=== PATIENT | female | born 1960 | race Caucasian/White ===

== ENCOUNTER → 2016-06-20 16:22 | Outpatient (CLI) | payer BC | END | disposition home or self-care (01) | LOC: D.MAMMO 10:00 | DX: Z12.31 Encounter for screening mammogram for malignant neoplasm of breast (principal) ==

== ENCOUNTER → 2017-06-22 13:05 | Outpatient (CLI) | payer BC | END | disposition home or self-care (01) | LOC: D.CT 13:05 | DX: K43.2 Incisional hernia without obstruction or gangrene (principal); R10.11 Right upper quadrant pain ==

== ENCOUNTER 2017-08-31 07:00 | Day surgery (SDC) | payer BC ==
[2017-08-30 08:26] LABS: HEMATOCRIT 34.8 % (36.0-48.0); HEMOGLOBIN 10.8 g/dL (12-16); MCH 25.2 pg (26.0-34.0); MCV 81.3 fL (80.0-100.0); MEAN PLATELET VOLUME 9.3 fL (7.4-10.4); RBC 4.28 10x6/uL (4.00-5.40); RDW 15.1 % (11.5-14.5)
[2017-08-30 08:39] LABS: ANION GAP 14.4 mmol/L (8-16); CALCIUM 8.4 mg/dL (8.5-10.1); CARBON DIOXIDE 26.2 mmol/L (21.0-32.0); CREATININE - SERUM 0.9 mg/dL (0.6-1.3); POTASSIUM - SERUM 3.6 mmol/L (3.5-5.1)
[~2017-08-31] VITALS: Ht 154.9 cm; Wt 91.2 kg
--- NOTE | ~2017-08-31 | OP ---
PATIENT NAME: STEPHANIE BENNETT MEDICAL RECORD: [id number] LOCATION:D[facility] ADMISSION DATE: SURGEON: RAJ BECKWITH MD DATE OF OPERATION: 08/31/2017 PREOPERATIVE DIAGNOSES: Right upper quadrant incisional hernia. POSTOPERATIVE DIAGNOSES: Right upper quadrant incarcerated incisional hernia. PROCEDURE: Open right upper quadrant incarcerated incisional hernia repair with 20.3 cm x 15.[address] mesh in the subfascial location. SURGEON: Raj Beckwith MD CLOTH FOLDER HAND: None. BLOOD LOSS: 50 cc. ANESTHESIA: General. COMPLICATIONS: None. The risks, possible complications and alternatives to the procedure were explained to the patient. She elects to proceed. Discussion specifically included, but was not limited to, bleeding requiring emergency reoperation, infection, intestinal injury as well as reherniation. OPERATIVE COURSE: The patient was conveyed to the operating room electively on 08/31/2017. General anesthesia was induced by the anesthesia staff. The abdomen was sterilely prepped and draped. A right subcostal incision was accomplished. I dissected down to the prior muscle closure. I incised into the peritoneal cavity. Peritoneal cavity was entered sharply. The falciform ligament was identified, was ligated doubly and divided between ligatures. I then began to mobilize the tissues around the hernia defect which was inferior to my muscular incision. I identified the hernia defect. I excised the sac. I then closed the hernia defect with multiple interrupted horizontal mattress 0 surgidacs. I then continued to release adhesions intraabdominally. I mobilized the hepatic flexure of the colon. Once I had enough space to place mesh into the peritoneal cavity, I sutured a 0 Surgidac suture to one side on the rough portion of the mesh. Through the hernia defect, I passed a suture passer twice each time pulling out one of the ends of the suture. I then tied. This fixated the mesh, so that it underlied the prior hernia defect. I then completed the herniorrhaphy with a tacking utilizing the SorbaFix Tacker. I then closed the muscle with full thickness bites in a horizontal mattress fashion utilizing the Surgidac sutures. I incorporated the underlying mesh in the sutures. I then overran this muscular closure with a running #1 Vicryl. The deep adipose tissue was closed with interrupted 3-0 Vicryl. The subcutaneous adipose tissue was closed with interrupted 3-0 Vicryls. The skin was closed with a running intracuticular 4-0 Vicryl. Sterile dressing was applied. The patient was then extubated and conveyed to post-anesthesia care unit where OPERATIVE REPORT [id number] STEPHANIE BENNETT she was in stable condition. My plan is to dismiss her home with hydrocodone and Colace. I will see her in the office in 2-3 weeks. TRANSINT:[id number] Voice Confirmation ID: [id number] DOCUMENT ID: [id number] RAJ BECKWITH MD at 1518 CC: JOHANA ABDALLA MD [id number] DICTATION DATE: 08/31/17 1050 TIMBER POISONER: 08/31/17 112[id number] [place] [address]
[~2017-08-31 07:00] MED LIST: BENADRYL25 MG PO; CELEXA20 MG PO; HYDROCODONE-APA1 TAB PO; HYZAAR 100-25 T1 TAB PO; IBUPROFEN800 MG PO; PROAIR HFA8.5 GM INH; ZYRTEC10 MG PO
[2017-08-31 07:38] VITALS: BP 123/56; Ht 154.9 cm; Wt 91.2 kg
== END 2017-08-31 12:30 | disposition home or self-care (01) ==
LOC: D.OPS 07:00 → D.PAN 08:50 → D.OPS 08:50 → D.PAN 09:45 → D.OPS 09:45
PROVIDERS: Anesthesiology
DX: K43.0 Incisional hernia with obstruction, without gangrene (principal); Z01.812 Encounter for preprocedural laboratory examination

== ENCOUNTER 2018-12-16 08:00 | Outpatient (CLI) | payer BC ==
[2017-08-31 07:38] VITALS: BMI 38.0
== END 2018-12-16 23:59 | disposition home or self-care (01) ==
LOC: D.MAMMO 08:00
PROVIDERS: ATTEND Family Medicine
DX: Z12.31 Encounter for screening mammogram for malignant neoplasm of breast (principal)